=== PATIENT | male | born 1960 | race Caucasian/White ===

== ENCOUNTER 2023-05-14 08:05 | Day surgery (SDC) | payer MEDICAID ==
[~2023-05-14] VITALS: Ht 172.7 cm; Wt 71.2 kg
[2023-05-14] MEDS ORDERED: MEPERIDINE 100 MG INJ. 100 MG/ML VIAL ONE (09:46)
[2023-05-14] MEDS ORDERED: MIDAZOLAM HCL 5 MG/5 ML VIAL ONE (09:47)
[2023-05-14 12:19] VITALS: O2SAT 96
[2023-05-14 12:37] VITALS: BP_SYST 121; PULSE 60; RESP 16
== END 2023-05-14 10:55 | disposition home or self-care (01) ==
LOC: SDS 08:05 → SMU 08:06 → SDS 10:55
PROVIDERS: ATTEND Internal Medicine Gastroenterology
DX: Z12.11 Encounter for screening for malignant neoplasm of colon (principal); D12.0 Benign neoplasm of cecum; K63.5 Polyp of colon; K64.8 Other hemorrhoids; I10 Essential (primary) hypertension; M10.9 Gout, unspecified; Z79.899 Other long term (current) drug therapy
CPT/HCPCS: 45384; 99152; 45385; 88305; G0378; J2250; J2175